=== PATIENT | male | born 1970 | race Caucasian/White ===

== ENCOUNTER 2017-06-30 07:48 | Emergency (ER) | payer MEDICAID ==
[~2017-06-30] VITALS: Ht 193 cm; Wt 79.4 kg
[2017-06-30] MEDS ORDERED: LIDOcaine 1.5% w/epinephrine 1:200,000 5ml ampul IJ ONE (08:10)
[2017-06-30] MEDS ORDERED: DOXY100T2 PO (08:18)
[2017-06-30] MEDS ORDERED: doxycycline hyclate 100mg tablet.DR PO STA (09:35)
[2017-06-30 10:09] VITALS: BP 115/78
== END 2017-06-30 10:10 | disposition home or self-care (01) ==
LOC: ER 07:48
DX: L03.011 Cellulitis of right finger (principal); F12.10 Cannabis abuse, uncomplicated; F15.10 Other stimulant abuse, uncomplicated; Z86.14 Personal history of Methicillin resistant Staphylococcus aureus infection; Z56.0 Unemployment, unspecified; Z60.2 Problems related to living alone; Z88.2 Allergy status to sulfonamides; Z79.899 Other long term (current) drug therapy
CPT/HCPCS: 10060; 99283; A6223; A6449; J3490

== ENCOUNTER 2017-07-02 08:20 | Day surgery (SDC) | payer MEDICAID ==
[~2017-07-02 08:20] MED LIST: DOXY100T2 PO
[2017-07-02] MEDS ORDERED: LIDOcaine 1%/PF (10mg/ml) 5ml vial ONE (09:56)
[2017-07-02] MEDS ORDERED: LIDOcaine 2% 5ml jelly ONE (10:21)
== END 2017-07-02 10:46 | disposition home or self-care (01) ==
LOC: WOUND CARE 08:20
PROVIDERS: ATTEND Surgery
DX: L98.491 Non-pressure chronic ulcer of skin of other sites limited to breakdown of skin (principal); F12.10 Cannabis abuse, uncomplicated; F15.10 Other stimulant abuse, uncomplicated; Z79.899 Other long term (current) drug therapy
CPT/HCPCS: 11042; 73140; A6021; A6206; J2001

== ENCOUNTER 2017-07-06 08:23 | Day surgery (SDC) | payer MEDICAID ==
[2017-07-06] MEDS ORDERED: LIDOcaine 2% 5ml jelly ONE (09:48)
== END 2017-07-06 11:08 | disposition home or self-care (01) ==
LOC: WOUND CARE 08:23
PROVIDERS: ATTEND Surgery
DX: L98.491 Non-pressure chronic ulcer of skin of other sites limited to breakdown of skin (principal); F12.10 Cannabis abuse, uncomplicated; F15.10 Other stimulant abuse, uncomplicated; Z79.899 Other long term (current) drug therapy; Z86.19 Personal history of other infectious and parasitic diseases
CPT/HCPCS: 11042; 73630; A6021

== ENCOUNTER 2017-07-13 08:23 | Day surgery (SDC) | payer MEDICAID ==
[2017-07-13] MEDS ORDERED: LIDOcaine 2% 5ml jelly ONE ×2 (09:41→11:44)
[2017-07-13] MEDS ORDERED: LIDOcaine 1%/PF (10mg/ml) 5ml vial ONE ×2 (10:38→11:25)
== END 2017-07-13 12:03 | disposition home or self-care (01) ==
LOC: WOUND CARE 08:23
PROVIDERS: ATTEND Surgery
DX: L98.491 Non-pressure chronic ulcer of skin of other sites limited to breakdown of skin (principal); L97.421 Non-pressure chronic ulcer of left heel and midfoot limited to breakdown of skin; L97.411 Non-pressure chronic ulcer of right heel and midfoot limited to breakdown of skin; F12.10 Cannabis abuse, uncomplicated; F15.10 Other stimulant abuse, uncomplicated; Z79.899 Other long term (current) drug therapy; Z86.19 Personal history of other infectious and parasitic diseases
CPT/HCPCS: 10060; 11042; 73650; A6021; A6446; J2001; L3260

== ENCOUNTER 2017-07-20 08:42 | Day surgery (SDC) | payer MEDICAID ==
[2017-07-20] MEDS ORDERED: LIDOcaine 2% 5ml jelly ONE ×2 (09:55)
== END 2017-07-20 11:17 | disposition home or self-care (01) ==
LOC: WOUND CARE 08:42
PROVIDERS: ATTEND Surgery
DX: L98.491 Non-pressure chronic ulcer of skin of other sites limited to breakdown of skin (principal); L97.421 Non-pressure chronic ulcer of left heel and midfoot limited to breakdown of skin; L97.411 Non-pressure chronic ulcer of right heel and midfoot limited to breakdown of skin; F12.10 Cannabis abuse, uncomplicated; F15.10 Other stimulant abuse, uncomplicated; Z79.899 Other long term (current) drug therapy; Z86.19 Personal history of other infectious and parasitic diseases
CPT/HCPCS: 11042; A6021; A6206

== ENCOUNTER 2017-07-27 08:57 | Outpatient (CLI) | payer MEDICAID | END 2017-07-27 09:56 | disposition home or self-care (01) | LOC: WOUND CARE 08:57 → EDSTATUS 09:00 → WOUND CARE 09:56 | PROVIDERS: ATTEND Surgery | DX: L98.491 Non-pressure chronic ulcer of skin of other sites limited to breakdown of skin (principal); F12.10 Cannabis abuse, uncomplicated; F15.10 Other stimulant abuse, uncomplicated; Z79.899 Other long term (current) drug therapy; Z86.19 Personal history of other infectious and parasitic diseases | CPT/HCPCS: 99211; A6021 ==

== ENCOUNTER 2022-03-13 07:41 | Emergency (ER) | payer MEDICAID, OTHER ==
[~2022-03-13] VITALS: Ht 188 cm; Wt 136.0 kg
[2022-03-13 09:38] VITALS: BP 175/108
[2022-03-13] MEDS ORDERED: apixaban 5mg tablet PO STA (10:27)
[2022-03-13] MEDS ORDERED: APIX5TAB3 PO ×2 (10:34)
== END 2022-03-13 10:44 | disposition home or self-care (01) ==
LOC: ER 07:42
DX: I82.432 Acute embolism and thrombosis of left popliteal vein (principal); F17.210 Nicotine dependence, cigarettes, uncomplicated; F12.10 Cannabis abuse, uncomplicated; Z59.00 Homelessness unspecified; Z88.2 Allergy status to sulfonamides; Z79.899 Other long term (current) drug therapy
CPT/HCPCS: 93971; 99284